=== PATIENT | female | born 1985 | race Caucasian/White ===

== ENCOUNTER 2018-05-05 21:33 | Emergency (ER) | payer SELFPAY ==
[~2018-05-05] VITALS: Ht 170.2 cm; Wt 99.8 kg
[2018-05-05] MEDS ORDERED: fentaNYL PF VIAL 100 MCG/2 ML VIAL ONE (21:49)
[2018-05-05 21:52] LABS: BASO # 0.1 x10^3/uL (0.0-0.2); BASO % 1 % (0-3); EOS # 0.1 x10^3/uL (0.0-0.7); EOS % 1 % (0-3); HEMATOCRIT 34.2 % (36.0-47.0); HEMOGLOBIN 11.2 g/dL (12.0-15.5); LYMPH # 2.3 x10^3/uL (1.0-4.8); LYMPH % 29 % (24-48); MEAN CORPUSCULAR HEMOGLOBIN 26 pg (25-35); MEAN CORPUSCULAR HGB CONC 33 g/dL (31-37); MEAN CORPUSCULAR VOLUME 78 fL (79-100); MONO # 0.9 x10^3/uL (0.0-1.1); MONO % 11 % (0-9); NEUT # 4.9 x10^3uL (1.8-7.7); NEUT % 60 % (31-73); PLATELET COUNT 498 x10^3/uL (140-400); RED BLOOD COUNT 4.39 x10^6/uL (3.50-5.40); RED CELL DISTRIBUTION WIDTH 19.6 % (11.5-14.5); WHITE BLOOD COUNT 8.2 x10^3/uL (4.0-11.0)
[2018-05-05 21:59] LABS: CALCIUM 9.2 mg/dL (8.5-10.1); GFR 64.7
[2018-05-05 22:00] LABS: POTASSIUM 2.9 mmol/L (3.5-5.1)
[2018-05-05] MEDS ORDERED: fentaNYL PF VIAL 100 MCG/2 ML VIAL IV ONE (22:00)
[2018-05-05] MEDS ORDERED: ONDANSETRON PF 4 MG/2 ML VIAL. IV ONE (22:00)
[2018-05-05] MEDS ORDERED: IV NORMAL SALINE 1000ML BAG 1,000 ML IV ONE (22:00)
--- NOTE | 2018-05-05 22:08 | PHYS DOC ---
Past Medical History Past Medical History: No Pertinent History Past Surgical History: Alcohol Use: None Drug Use: None Adult General Chief Complaint Chief Complaint: FLANK PAIN HPI HPI Patient is a 33 year old female who presents with left flank pain. Patient had onset of symptoms about 12 hours prior to presentation to the emergency department. She was at rest when she had sudden onset of severe left flank pain described to be achy in nature. She also had nausea with multiple episodes of emesis. Patient came to the ER when she could no longer tolerate the pain at home. She does describe some urgency of urination over the last 48 hours and some darker colored urine compared to normal. She has no known prior history of kidney stones. No fever or chills. No vaginal symptoms. Review of Systems Review of Systems Constitutional: Denies fever Eyes: Denies change in visual acuity, redness, or eye pain HENT: Denies nasal congestion or sore throat Respiratory: Denies cough Cardiovascular: No additional information not addressed in HPI GI: Denies abdominal pain : + urgency, dysuria Musculoskeletal: Denies back pain Integument: Denies rash Neurologic: Denies headache All other systems were reviewed and found to be within normal limits, except as documented in this note. Current Medications Current Medications Current Medications Medications (Trade) Dose Ordered Sig/Jet Start Time Stop Time Status Last Admin Dose Admin Acetaminophen (Tylenol) 650 mg PRN Q4HRS PRN 05/05/18 22:45 05/05/18 23:03 DC Albuterol/ Ipratropium (Duoneb) 3 ml RTQID 05/06/18 08:00 05/06/18 08:00 DC Fentanyl Citrate (Fentanyl 2ml Vial) 50 mcg PRN Q1HR PRN 05/05/18 22:45 05/06/18 22:44 Hydromorphone HCl (Dilaudid) 1 mg 1X ONCE 05/05/18 23:45 05/05/18 23:54 DC 05/05/18 23:37 1 MG Ketorolac Tromethamine (Toradol 30mg Vial) 30 mg 1X ONCE 05/05/18 23:30 05/05/18 23:31 DC 05/05/18 23:37 30 MG Nicardipine HCl 50 mg/Sodium Chloride 270 ml @ 27 mls/hr CONT PRN 05/05/18 22:45 05/05/18 23:03 DC Ondansetron HCl (Zofran) 4 mg PRN Q8HRS PRN 05/05/18 22:45 05/05/18 23:03 DC Potassium Chloride (KCl Oral Soln) 40 meq 1X ONCE 05/06/18 00:15 05/06/18 00:16 DC Sodium Chloride 1,000 ml @ 75 mls/hr [id number] 05/05/18 22:45 05/06/18 22:44 05/05/18 23:07 75 MLS/HR Tamsulosin HCl (Flomax) 0.4 mg 1X ONCE 05/06/18 00:30 05/06/18 00:31 Allergies Allergies Allergies Coded Allergies Type Severity Reaction Last Updated Verified No Known Drug Allergies 05/05/18 No Physical Exam Physical Exam Constitutional: Well developed, well nourished, severe distress /2 pain HENT: Normocephalic, atraumatic, bilateral external ears normal, oropharynx moist Eyes: PERRLA, EOMI, conjunctiva normal Neck: Normal range of motion, no tenderness, supple, no stridor. Cardiovascular:Heart rate regular rhythm, no murmur Lungs & Thorax: Bilateral breath sounds clear to auscultation Abdomen: Bowel sounds normal, soft, no tenderness Skin: Warm, dry, no erythema Back: No tenderness, + TTP over the left CVA area Neurologic: Alert and oriented X 3 Psychologic: Affect normal Current Patient Data Vital Signs Vital Signs Date Time Temp Pulse Resp B/P (MAP) Pulse Ox O2 Delivery O2 Flow Rate FiO2 05/05/18 22:39 94 Room Air 05/05/18 22:15 94 24 169/85 (113) 05/05/18 21:36 97.3 97.3 Lab Values Laboratory Tests Test 05/05/18 21:42 05/05/18 22:45 05/05/18 22:51 White Blood Count 8.2 x10^3/uL (4.0-11.0) Red Blood Count 4.39 x10^6/uL (3.50-5.40) Hemoglobin 11.2 g/dL (12.0-15.5) L Hematocrit 34.2 % (36.0-47.0) L Mean Corpuscular Volume 78 fL (79-100) L Mean Corpuscular Hemoglobin 26 pg (25-35) Mean Corpuscular Hemoglobin Concent 33 g/dL (31-37) Red Cell Distribution Width 19.6 % (11.5-14.5) H Platelet Count 498 x10^3/uL (140-400) H Neutrophils (%) (Auto) 60 % (31-73) Lymphocytes (%) (Auto) 29 % (24-48) Monocytes (%) (Auto) 11 % (0-9) H Eosinophils (%) (Auto) 1 % (0-3) Basophils (%) (Auto) 1 % (0-3) Neutrophils # (Auto) 4.9 x10^3uL (1.8-7.7) Lymphocytes # (Auto) 2.3 x10^3/uL (1.0-4.8) Monocytes # (Auto) 0.9 x10^3/uL (0.0-1.1) Eosinophils # (Auto) 0.1 x10^3/uL (0.0-0.7) Basophils # (Auto) 0.1 x10^3/uL (0.0-0.2) Maternal Serum HCG Beta Subunit < 1 mIU/mL (0-5) Sodium Level 139 mmol/L (136-145) Potassium Level 2.9 mmol/L (3.5-5.1) *L Chloride Level 100 mmol/L (98-107) Carbon Dioxide Level 26 mmol/L (21-32) Anion Gap 13 (6-14) Blood Urea Nitrogen 12 mg/dL (7-20) Creatinine 1.0 mg/dL (0.6-1.0) Estimated GFR (Cockcroft-Gault) 64.7 Glucose Level 105 mg/dL (70-99) H Calcium Level 9.2 mg/dL (8.5-10.1) Urine Collection Type Unknown Urine Color Yellow Urine Clarity Cloudy Urine pH 5.5 Urine Specific Treece 1.025 Urine Protein Negative mg/dL (NEG-TRACE) Urine Glucose (UA) Negative mg/dL (NEG) Urine Ketones (Stick) >=80 mg/dL (NEG) Urine Blood Large (NEG) Urine Nitrite Negative (NEG) Urine Bilirubin Small (NEG) Urine Urobilinogen Dipstick 1.0 mg/dL (0.2 mg/dL) Urine Leukocyte Esterase Small (NEG) Urine RBC 20-40 /HPF (0-2) Urine WBC 11-20 /HPF (0-4) Urine Squamous Epithelial Cells Many /LPF Urine Bacteria Many /HPF (0-FEW) Urine Mucus Mod /LPF POC Urine HCG, Qualitative Hcg negative (Negative) Laboratory Tests 05/05/18 21:42 Laboratory Tests 05/05/18 21:42 EKG EKG [] Radiology/Procedures Radiology/Procedures FINDINGS: Abdominal aorta is not aneurysmal. No intrahepatic bile duct dilation. No peripancreatic fluid collection. Spleen unremarkable. Left-sided hydronephrosis and hydroureter with 6 mm left distal ureter stone. The urinary bladder is largely decompressed. No right-sided hydronephrosis. Nonobstructive right renal stone. Intrauterine device. No periappendiceal inflammation. No dilated loops of bowel to suggest obstruction. IMPRESSION: 1. Left-sided hydronephrosis with distal ureter stone. Course & Med Decision Making Course & Med Decision Making Pertinent Labs and Imaging studies reviewed. (See chart for details) Arrival to her room. She is in acute distress due to pain. Her presentation seems suspicious for kidney stone. She has no tenderness to palpation over the suprapubic her pelvic region. IV fluids and pain medications are ordered. Will await urinalysis and to her CT scan. 23:45: Patient currently improved. En route to CT scan. Patient did require multiple doses of very strong opiate pain medications for relief of her pain symptoms. She received fentanyl, and multiple doses of Dilaudid before adequate pain control was achieved. Following negative test, the patient was given Toradol which did seem to help her pain as well. 00:35: Currently pain-free. Patient is tolerating by mouth liquids. She was given a single Flomax as well as potassium replacement. Plan is for discharge home. She will be placed on ibuprofen and Percocet and Flomax and Reglan as needed for nausea. Patient is advised to come back to the ER for any new or worsening symptoms. Opiate precautions are discussed. She has a family member present to drive her home today. All her questions are answered prior to discharge home. Dragon Disclaimer Dragon Disclaimer This electronic medical record was generated, in whole or in part, using a voice recognition dictation system. Departure Departure Disposition: 01 HOME, SELF-CARE Condition: GOOD MICHAEL BROOKS DO May 05, 2018 22:08
[2018-05-05] MEDS ORDERED: HYDROmorphone 2 MG/ML VIAL IV ONE ×3 (22:15→23:45)
[2018-05-05] MEDS ORDERED: HYDROmorphone 2 MG/ML VIAL ONE (22:36)
[2018-05-05] MEDS ORDERED: fentaNYL PF VIAL 100 MCG/2 ML VIAL IV PRN (22:45)
[2018-05-05] MEDS ORDERED: IV NORMAL SALINE 1000ML BAG 1,000 ML IV SCH (22:45)
[2018-05-05] MEDS ORDERED: ONDANSETRON PF 4 MG/2 ML VIAL. IV PRN (22:45)
[2018-05-05] MEDS ORDERED: ACETAMINOPHEN 325 MG TABLET. PO PRN (22:45)
[2018-05-05 23:00] LABS: BILIRUBIN,URINE SMALL (NEG); CLARITY,URINE CLOUDY; COLOR,URINE YELLOW; NITRITE,URINE NEGATIVE (NEG); PH,URINE 5.5; PROTEIN,URINE NEGATIVE (NEG-TRACE)
[2018-05-05 23:06] LABS: BACTERIA,URINE MANY /HPF (0-FEW); RBC,URINE 20-40 /HPF (0-2); SQUAMOUS EPITHELIAL CELL,UR MANY /LPF
[2018-05-05 23:09] VITALS: BP 156/81
[2018-05-05] MEDS ORDERED: KETOROLAC 30 MG/ML VIAL. IV ONE (23:30)
[2018-05-06] MEDS ORDERED: POTASSIUM CHLORIDE 20 MEQ/15 ML ORAL LIQUID. PO ONE (00:15)
--- NOTE | 2018-05-06 00:23 | RAD ---
INDICATION: LEFT FLANK PAIN, EVAL FOR RENAL STONES COMPARISON: None. TECHNIQUE: Axial CT images obtained through the abdomen and pelvis without contrast. Limited assessment of solid organ structures and vasculature secondary to lack of intravenous contrast.. One or more of the following individualized dose reduction techniques were utilized for this examination: 1. Automated exposure control; 2. Adjustment of the mA and/or kV according to patient size; 3. Use of iterative reconstruction technique. FINDINGS: Abdominal aorta is not aneurysmal. No intrahepatic bile duct dilation. No peripancreatic fluid collection. Spleen unremarkable. Left-sided hydronephrosis and hydroureter with 6 mm left distal ureter stone. The urinary bladder is largely decompressed. No right-sided hydronephrosis. Nonobstructive right renal stone. Intrauterine device. No periappendiceal inflammation. No dilated loops of bowel to suggest obstruction. IMPRESSION: 1. Left-sided hydronephrosis with distal ureter stone. Electronically signed by: Andrew Poe MD (05/06/2018 12:19 AM) [id number]
[2018-05-06] MEDS ORDERED: TAMSULOSIN 0.4 MG CAP.ER.24H. PO ONE (00:30)
[2018-05-06] MEDS ORDERED: IBUP-1060 PO (00:44)
[2018-05-06] MEDS ORDERED: METO10TA81 PO (00:44)
[2018-05-06] MEDS ORDERED: TAMS0.4C97 PO (00:44)
[2018-05-06] MEDS ORDERED: OXYC1TAB15 PO (00:44)
[2018-05-06] MEDS ORDERED: IPRATRPIUM/ALBUTEROL 0.5/2.5MG 3 ML NEBU. NEB SCH (08:00)
== END 2018-05-06 00:45 | disposition home or self-care (01) ==
LOC: ER 21:33
DX: N13.2 Hydronephrosis with renal and ureteral calculous obstruction (principal); R11.2 Nausea with vomiting, unspecified; Z98.890 Other specified postprocedural states
CPT/HCPCS: 36415; 74176; 80048; 81001; 81025; 84702; 85025; 96361; 96374; 96375; 96376; 99284; J1170; J1885; J2405; J3010; J7030